=== PATIENT | female | born 1990 | race Two or more races ===

== ENCOUNTER 2022-11-17 12:01 | Emergency (ER) | payer BC ==
[~2022-11-17] VITALS: Ht 162.6 cm; Wt 75.3 kg
[2022-11-17] MEDS ORDERED: SERTRALINE20 MG/1 ML PO (12:47)
== END 2022-11-17 17:28 | disposition home or self-care (01) ==
LOC: ER 12:01
DX: O20.0 Threatened abortion (principal); Z3A.16 16 weeks gestation of pregnancy